=== PATIENT | female | born 1980 | race Caucasian/White ===

== ENCOUNTER → 2017-12-13 | Day surgery (SDC) | payer OTHER ==
[~2017-12-13] VITALS: Ht 157.5 cm; Wt 53.5 kg
[~2017-12-13] MED LIST: DOCUSATE SODIU100 MG PO; FLAGYL 25O MG250 M1 PO; IBUPROFEN800 MG PO; PERCOCET 325 MG1 TA2 PO; PRENATAL1 TA2 PO
[2017-12-13 15:24] VITALS: BP 124/68
[2017-12-13 17:25] LABS: ABSOLUTE BASOPHIL COUNT 0.1 /CUMM (0.0-0.2); ABSOLUTE EOSINOPHIL COUNT 0 /CUMM (0.0-0.7); ABSOLUTE GRANULOCYTE CT 7.7 /CUMM (1.4-6.5); ABSOLUTE LYMPH COUNT 1.1 /CUMM (1.2-3.4); ABSOLUTE MONOCYTE COUNT 0.3 /CUMM (0.10-0.60); BASOPHIL % 0.9 % (0.0-2.0); EOSINOPHIL % 0.2 % (0-5); GRANULOCYTE % 83.3 % (42.2-75.2); HEMATOCRIT 41.7 % (37-47); MEAN CORPUSCULAR HGB 29.4 PG (27.0-31.0); MEAN CORPUSCULAR HGB CONC 34.2 G/DL (33.0-37.0); MEAN CORPUSCULAR VOLUME 85.9 FL (81.0-99.0); MEAN PLATELET VOLUME 7.2 FL (7.4-10.4); PLATELET COUNT 285 /CUMM (130-400); RBC DISTRIBUTION WIDTH 13.1 % (11.5-14.5); RED BLOOD CELL CT 4.85 /CUMM (4.20-5.40); WHITE BLOOD CELL COUNT 9.3 /CUMM (4.8-10.8)
[2017-12-13 17:26] LABS: PT 13.3 SEC (9.4-12.5); PTT 34 SEC (25-37)
--- NOTE | 2017-12-13 18:34 | ED GI/GU/ABDOMINAL COMPLAINT ---
History of Present Illness General Chief Complaint: General Adult Stated Complaint: SENT BY FOR DNC PER PT Source: patient, family Exam Limitations: no limitations Vital Signs & Intake/Output Vital Signs & Intake/Output Vital Signs Date Time Temp Pulse Resp B/P B/P Pulse O2 O2 Flow FiO2 Mean Ox Delivery Rate 12/13 1524 98.4 72 18 124/68 98 Room Air Allergies Coded Allergies: NO KNOWN ALLERGIES (03/16/14) Reconcile Medications Docusate Sodium 100 MG SGL 100 MG PO BID PRN STOOL SOFTENER Ibuprofen 800 MG TABLET 800 MG PO Q6P PRN PAIN SCALE 4-6 OXYCODONE HCL/ACETAMINOPHEN (Percocet 5-325 MG Tablet) 325 MG/5 MG TAB 1 TAB PO Q3P PRN PAIN SCALE 7-10 PNV95/FERROUS FUMARATE/FA ( Formula Tablet) 28 MG IRON-800 MCG TABLET 1 TAB PO DAILY (Reported) Triage Note: 37 YO FEMALE SENT TO ER BY DR REDDING FOR D&C. PT [address] REDDING, PT WILL BE GOING TO THE OR TODAY. PT DENIES ANY CURRENT PAIN/VAGINAL BLEEDING Triage Nurses Notes Reviewed? yes ? Y Is pt currently ? No HPI: Patient sent in from her branch operations manager's office for a miscarriage with retained products. Positive vaginal bleeding. Patient is due to go to the floor for a D &C. Patient is with 2 sons. Patient is O+. Patient had an ultrasound in her branch operations manager's office. Patient has no other complaints. Past History Travel History Traveled to [place] past 21 day No Medical History Any Pertinent Medical History? none Neurological: NONE EENT: NONE Cardiovascular: NONE Respiratory: NONE Gastrointestinal: NONE Hepatic: NONE Renal: NONE Musculoskeletal: NONE Psychiatric: NONE Endocrine: NONE Blood Disorders: NONE Cancer(s): NONE BUTCHER SCULLION/Reproductive: NONE Influenza Vaccine: 02/13/14 Surgical History Surgical History: non-contributory Psychosocial History What is your primary language Slovenian Tobacco Use: Never used ETOH Use: denies use Illicit Drug Use: denies illicit drug use Family History Hx Contributory? No Review of Systems Review of Systems Constitutional: Reports: no symptoms. EENTM: Reports: no symptoms. Respiratory: Reports: no symptoms. Cardiovascular: Reports: no symptoms. GI: Reports: no symptoms. Genitourinary: Reports: see HPI. Musculoskeletal: Reports: no symptoms. Skin: Reports: no symptoms. Neurological/Psychological: Reports: no symptoms. Hematologic/Endocrine: Reports: no symptoms. Immunologic/Allergic: Reports: no symptoms. All Other Systems: Reviewed and Negative Physical Exam Physical Exam General Appearance: well developed/nourished, alert, awake, anxious Head: atraumatic, normal appearance Eyes: Bilateral: PERRL, EOMI. Ears, Nose, Throat, Mouth: hearing grossly normal, moist mucous membrane Neck: normal inspection, supple, full range of motion Respiratory: normal breath sounds, chest non-tender, no respiratory distress, lungs clear Cardiovascular: regular rate/rhythm, normal peripheral pulses Gastrointestinal: normal bowel sounds, soft, non-tender, no organomegaly Back: normal inspection, normal range of motion Extremities: normal range of motion Neurologic/Psych: no motor/sensory deficits, awake, alert, oriented x 3, normal gait, normal mood/affect Skin: intact Core Measures ACS in differential dx? No Sepsis Present: No Sepsis Focused Exam Completed? No Progress Differential Diagnosis: RETAINED PRODUCTS Plan of Care: Orders Procedure Date/time Status PARTIAL THROMBOPLASTIN TIME 12/13 151 Complete PROTHROMBIN TIME 12/13 151 Complete HUMAN BETA HCG TITRE 12/13 151 Complete COMPREHENSIVE METABOLIC PANEL 12/13 151 Complete CBC WITHOUT DIFFERENTIAL 12/13 1514 Complete TYPE & SCREEN (NOT X-MATCH) 12/13 151 Complete Laboratory Tests 12/13/17 1710: Anion Gap 13, Estimated GFR > 60, BUN/Creatinine Ratio 16.7, Glucose 96, Calcium 9.4, Total Bilirubin 0.6, AST 18, ALT 34, Alkaline Phosphatase 50, Total Protein 7.8, Albumin 4.9, Globulin 2.9, Albumin/Globulin Ratio 1.7, Beta HCG, Quant 59234.0, PT 13.3 H, INR 1.22 H, APTT 34, CBC w Diff NO MAN DIFF REQ, RBC 4.85, MCV 85.9, MCH 29.4, MCHC 34.2, RDW 13.1, MPV 7.2 L, Gran % 83.3 H, Lymphocytes % 12.1 L, Monocytes % 3.5, Eosinophils % 0.2, Basophils % 0.9, Absolute Granulocytes 7.7 H, Absolute Lymphocytes 1.1 L, Absolute Monocytes 0.3, Absolute Eosinophils 0, Absolute Basophils 0.1 Initial ED EKG: none Departure Departure Disposition: STILL A PATIENT Condition: Stable Clinical Impression Primary Impression: Retained products of conception Referrals: Patient Has No Primary Care Dr (PCP/Family) Departure Forms: Customer Survey General Discharge Information OR/GI Note Spoke With: Rasheed Armenta MD,Tahir Treatment Decision: CECI BENAVIDES requires urgent operative management or an emergent procedure that cannot be performed in the Emergency Room setting. Transport To: [facility]
--- NOTE | 2017-12-20 16:55 | Operative Report ---
Operative/Inv Procedure Report Surgery Date: 12/13/17 Name of Procedure: Suction D&C Pre-Operative Diagnosis: Missed Post-Operative Diagnosis: Same Estimated Blood Loss: scant Surgeon/Press Secretary: Tahir Kennedy MD Anesthesia: moderate sedation Operative/Procedure Note Note: The patient was brought to the operating room placed on the OR table in the dorsal supine position. She was given adequate anesthesia and placed into dorsal lithotomy. She was prepped and draped in usual sterile fashion. A weighted speculum inserted into the vagina and with the [place] retractor single- tooth tenaculum was attached to the anterior lip of the cervix. The cervix wasn 't checked with 1% lidocaine with epinephrine 2-1/2 mL in each quadrant. Cervix was serially dilated to accommodate a 9 mm curved suction curet this was placed into the uterus and the suction was activated revealing a moderate amount of products of conception. A small amount of bleeding was noted. Sharp curettage followed revealing no remaining tissue and one final pass of the suction curet also revealed no remaining tissue. At the end of the procedure the entrance removed and hemostasis was verified. The patient was then awakened and sent to recovery in good condition. All needle, sponge, and inspected counts were correct at the end of procedure 2.
== END ==
LOC: ERH 15:06 → ER-OR 15:28 → STS 19:20 → ER-OR 19:20
PROVIDERS: Physician Assistant
DX: O02.1 Missed abortion (principal)
CPT/HCPCS: 88305; J0131; J2250